=== PATIENT | female | born 2000 | race Caucasian/White ===

== ENCOUNTER 2019-11-25 21:01 | Emergency (ER) | payer OTHER ==
[2019-11-25 21:14] VITALS: BP 123/64
[2019-11-25] MEDS ORDERED: NORMAL SALINE 1000 ML 1,000 ML IV ONE (22:25)
[2019-11-25] MEDS ORDERED: ONDANSETRON 4 MG TAB.RAPDIS PO ONE (22:25)
--- NOTE | 2019-11-25 22:26 | ER Document Report ---
ED Medical Screen (RME) - General Chief Complaint: Nausea/Vomiting/Diarrhea Stated Complaint: VOMITING Time Seen by Provider: 11/25/19 22:22 Mode of Arrival: Ambulatory Information source: Patient Notes: 19-year-old female relatively healthy presents to the emergency department with complaints of nausea vomiting diarrhea all day to the extremes. Reports she has been unable to keep any food or fluids down today. She reports she has had multiple episodes of diarrhea and vomiting. Did not receive her flu vaccine. Denies fever. No recent trips. I have greeted and performed a rapid initial assessment of this patient. A comprehensive ED assessment and evaluation of the patient, analysis of test results and completion of the medical decision making process will be conducted by additional ED providers. TRAVEL OUTSIDE OF THE [place] IN LAST 30 DAYS: No - Related Data Allergies/Adverse Reactions: Anesthetics - Amide Type Allergy (Verified 11/25/19 22:19) naloxone [From Narcan] Allergy (Verified 11/25/19 22:19) Home Medications: Hydroxyzine. Lamotrigne. Escitalopram. Control Past Medical History - Social History Frequency of alcohol use: Occasional Drug Abuse: None Physical Exam - Vital signs Vitals: Temp Pulse Resp BP Pulse Ox 99.4 F 115 H 18 123/64 98 11/25/19 21:13 11/25/19 21:13 11/25/19 21:13 11/25/19 21:13 11/25/19 21:13 Course - Vital Signs Vital signs: Temp Pulse Resp BP Pulse Ox 99.4 F 115 H 18 123/64 98 11/25/19 21:13 11/25/19 21:13 11/25/19 21:13 11/25/19 21:13 11/25/19 21:13
[2019-11-25 23:39] LABS: APPEARANCE,URINE SLIGHTLY-CLOUDY; BILIRUBIN,URINE NEGATIVE (NEGATIVE); COLOR,URINE YELLOW; GLUCOSE, URINE NEGATIVE (NEGATIVE); KETONES,URINE 20 mg/dL (NEGATIVE); LEUKOCYTE ESTERASE,URINE NEGATIVE (NEGATIVE); NITRITE,URINE NEGATIVE (NEGATIVE); PROTEIN,URINE NEGATIVE (NEGATIVE); URINE SPECIFIC GRAVITY 1.031; UROBILINOGEN,URINE NEGATIVE mg/dL (<2.0)
[2019-11-25 23:53] LABS: A TYPE INFLUENZA AG NEGATIVE (NEGATIVE); B INFLUENZA AG NEGATIVE (NEGATIVE)
[2019-11-25 23:58] LABS: ALBUMIN 4.4 g/dL (3.5-5.0); ALKALINE PHOSPHATASE 60 U/L (38-126); ANION GAP 14 (5-19); ASPARTATE AMINO TRANSFERASE 24 U/L (14-36); BILIRUBIN,DIRECT 0.2 mg/dL (0.0-0.4); BILIRUBIN,TOTAL 0.7 mg/dL (0.2-1.3); BLOOD UREA NITROGEN 16 mg/dL (7-20); CALCIUM 9.3 mg/dL (8.4-10.2); CARBON DIOXIDE 25 mmol/L (22-30); CHLORIDE 98 mmol/L (98-107); GLUCOSE 104 mg/dL (75-110); POTASSIUM 3.8 mmol/L (3.6-5.0); TOTAL PROTEIN 7.5 g/dL (6.3-8.2)
[2019-11-26 00:20] LABS: HEMATOCRIT 42.7 % (36.0-47.0); HEMOGLOBIN 15.1 g/dL (12.0-15.5); MEAN CORPUSCULAR HEMOGLOBIN 30.4 pg (27.0-33.4); MEAN CORPUSCULAR HGB CONC 35.4 g/dL (32.0-36.0); MEAN CORPUSCULAR VOLUME 86 fl (80-97); PLATELET COUNT 181 10^3/uL (150-450); RED BLOOD COUNT 4.98 10^6/uL (3.72-5.28); RED CELL DISTRIBUTION WIDTH 12.5 % (11.5-14.0); WHITE BLOOD COUNT 8.1 10^3/uL (4.0-10.5)
[2019-11-26 00:24] LABS: ABSOLUTE LYMPHOCYTES# (MANUAL) 0.4 10^3/uL (0.5-4.7); ABSOLUTE MONOCYTES # (MANUAL) 0.1 10^3/uL (0.1-1.4); BASOPHILS % (MANUAL) 0 % (0-2); EOSINOPHILS % (MANUAL) 0 % (0-6); LYMPHOCYTES % (MANUAL) 5 % (13-45); MONOCYTES % (MANUAL) 1 % (3-13); SEGMENTED NEUTROPHILS % (MAN) 94 % (42-78); TOTAL CELLS COUNTED 100
[2019-11-26 00:26] LABS: PLATELET COMMENT ADEQUATE; POIKILOCYTOSIS SLIGHT; TEAR DROP CELLS SLIGHT; TOXIC GRANULATION 1+; TOXIC VACUOLATION PRESENT
== END 2019-11-26 01:55 | disposition left against medical advice (07) ==
LOC: ER 21:01
DX: R11.2 Nausea with vomiting, unspecified (principal); R19.7 Diarrhea, unspecified; Z79.3 Long term (current) use of hormonal contraceptives
CPT/HCPCS: 99281; 36415; 85025; 81025; 80053; 81001; 87804; S0119